=== PATIENT | female | born 1990 | race Caucasian/White ===

== ENCOUNTER 2017-05-01 16:34 | Emergency (ER) | payer MEDICAID, OTHER ==
[~2017-05-01] VITALS: Ht 167.6 cm; Wt 42.0 kg
[2017-05-01 16:48] VITALS: Ht 167.6 cm; Wt 42.0 kg
[2017-05-01] MEDS ORDERED: ONDANSETRON (ODT) 4 MG TAB ODT STA (17:06)
[2017-05-01] MEDS ORDERED: LIDOCAINE 1% (MDV) 20 ML INJ IM ONE (17:30)
[2017-05-01] MEDS ORDERED: AZITHROMYCIN 250 MG TAB PO ONE (17:30)
[2017-05-01] MEDS ORDERED: CEFTRIAXONE 250 MG INJ IM ONE (17:30)
[2017-05-01 17:51] LABS: ADD UMIC YES; UR ASCORBIC ACID NEGATIVE (NEGATIVE); UR BACTERIA FEW /HPF (NONE SEEN); UR BILIRUBIN (Dip) NEGATIVE (NEGATIVE); UR BLOOD (Dip) 1+ mg/dL (NEGATIVE); UR CLARITY SLIGHTLY CLOUDY (CLEAR); UR COLOR YELLOW (YELLOW); UR GLUCOSE (Dip) NEGATIVE (NEGATIVE); UR KETONES (Dip) NEGATIVE (NEGATIVE); UR LEUKOCYTE ESTERASE (Dip) 2+ Leu/ul (NEGATIVE); UR MUCUS MANY /HPF (NONE SEEN); UR NITRITE (Dip) NEGATIVE (NEGATIVE); UR RBC 2 /HPF (0-5); UR SPECIFIC GRAVITY (Dip) 1.027 (1.003-1.030); UR SQUAMOUS EPITHELIAL CELL FEW /HPF (FEW); UR TOTAL PROTEIN (Dip) 1+ mg/dl (NEGATIVE); UR UROBILINOGEN (Dip) NEGATIVE (NEGATIVE)
[2017-05-01] MEDS ORDERED: ONDA4TAB14 PO (17:59)
[2017-05-01] MEDS ORDERED: NITR-58 PO (17:59)
--- NOTE | 2017-05-01 18:05 | ERD ---
ER Documentation Chief Complaint Date/Time DATE: 05/01/17 TIME: 18:03 Chief Complaint Pt with AP and vomiting since yesterday. HPI Patient is a 26-year-old female who presents to the ED with generalized abdominal pain, suprapubic pain and STD check. She states that she is currently sexually active with one partner. She does have a history of chlamydia and would like to get treated and tested for STD. She complains of vaginal discharge that is great. Denies vaginal bleeding. States her last normal menstrual period was 04/27/17. Denies diarrhea or constipation. Had an episode of nonbloody nonbilious he has emesis yesterday with no vomiting today. Denies decrease in appetite. Denies headache or dizziness. No other complaints. ROS All systems reviewed and are negative except as per history of present illness. Medications Home Meds Active Scripts Ondansetron (Ondansetron Odt) 4 Mg Tab.rapdis, 4 MG PO Q6H Y for NAUSEA AND/OR VOMITING, #10 TAB Prov:LILIA JONES PA-C 05/01/17 Nitrofurantoin Monohyd Macrocr* (Macrobid*) 100 Mg Capsr, 100 MG PO BID for 7 Days, CAP Prov:LILIA JONES PA-C 05/01/17 Reported Medications [None] No Conflict Check 07/27/10 Allergies Allergies: Coded Allergies: No Known Allergies (Verified Allergy, Mild, 08/31/11) PMhx/Soc Medical and Surgical Hx: pt denies Medical Hx, pt denies Surgical Hx History of Surgery: No Anesthesia Reaction: No Hx Neurological Disorder: No Hx Respiratory Disorders: No Hx Cardiac Disorders: No Hx Psychiatric Problems: No Hx Miscellaneous Medical Probl: No Hx Alcohol Use: No Hx Substance Use: No Hx Tobacco Use: No Smoking Status: Never smoker FmHx Family History: No coronary disease, No diabetes, No other Physical Exam Vitals Vital Signs Date Time Temp Pulse Resp B/P Pulse Ox O2 Delivery O2 Flow Rate FiO2 05/01/17 16:48 98.9 95 18 122/59 100 Physical Exam GENERAL: Well-developed, well-nourished female. Appears in no acute distress. HEAD: Normocephalic, atraumatic. EYES: Pupils are equally reactive bilaterally. EOMs grossly intact. No conjunctival erythema. ENT: Moist mucous membranes. No uvula deviation. No kissing tonsils. No exudates. NECK: Supple. No lymphadenopathy or thyromegaly. No meningismus. negative kernig. negative brudinski. LUNG: Clear to auscultation bilaterally. No rhonchi, wheezing, rales or coarse breath sounds. HEART: Regular rate and rhythm. No murmurs, rubs or gallops. ABDOMEN: No scars, ecchymosis or rashes noted. Soft, nontender, and nondistended. Positive bowel sounds in all four quadrants. No rebound tenderness , no guarding. (-) McBurneys point tenderness. No CVA tenderness. BACK: No midline tenderness. Extremities: Equal pulses bilaterally. No peripheral clubbing, cyanosis or edema. No unilateral leg swelling. NEUROLOGIC: Alert and oriented. Moving all four extremities. 5/5 strength in all extremities. Normal speech. Steady gait. SKIN: Normal color. Warm and dry. No rashes or lesions. Capillary refill < 2 seconds Results 24 hrs Laboratory Tests Test 05/01/17 17:21 Urine Color YELLOW Urine Clarity SLIGHTLY CLOUDY Urine pH 5.0 Urine Specific [place] 1.027 Urine Ketones NEGATIVEmg/dL Urine Nitrite NEGATIVEmg/dL Urine Bilirubin NEGATIVEmg/dL Urine Urobilinogen NEGATIVEmg/dL Urine Leukocyte Esterase 2+Blu/ul Urine Microscopic RBC 2/HPF Urine Microscopic WBC 29/HPF Urine Squamous Epithelial Cells FEW/HPF Urine Calcium Oxalate Crystals FEW/HPF Urine Bacteria FEW/HPF Urine Mucus MANY/HPF Urine Hemoglobin 1+mg/dL Urine Glucose NEGATIVEmg/dL Urine Total Protein 1+mg/dl Current Medications Medications (Trade) Dose Ordered Sig/Xavier Route PRN Reason Start Time Stop Time Status Last Admin Dose Admin Azithromycin (Zithromax) 1,000 mg ONCE ONCE PO 05/01/17 17:30 05/01/17 17:31 DC 05/01/17 17:44 Ceftriaxone Sodium (Rocephin) 250 mg ONCE ONCE IM 05/01/17 17:30 05/01/17 17:31 DC 05/01/17 17:44 Lidocaine (Xylocaine 1% (Mdv) 20 ml) 20 ml ONCE ONCE IM 05/01/17 17:30 05/01/17 17:31 DC 05/01/17 17:45 Ondansetron HCl (Zofran Odt) 4 mg ONCE STAT ODT 05/01/17 17:06 05/01/17 17:08 DC 05/01/17 17:44 Procedures/MDM ER COURSE: I kept the patient and/or family informed of laboratory and diagnostic imaging results throughout the emergency room course. LABORATORY STUDIES Urinalysis shows 2+ leukocytes with no nitrites. Negative test. MEDICAL DECISION MAKING: This is a 26-year-old female who presents with generalized abdominal pain, suprapubic pain and STD check. Vital signs were reviewed. Patient is afebrile. Patient is not hypoxic. Patient is not toxic or ill-appearing. Patient's abdominal exam is within normal limits and unremarkable. Therefore no further blood work or ultrasound or imaging studies were necessary. Patient was given Zofran, azithromycin and Rocephin in the ED. Tolerated well with no adverse reaction. Patient has cystitis. Urine was sent for gonorrhea and chlamydia culture. Low suspicion for ovarian torsion, PID, tuboovarian abscess, ectopic , bowel obstruction, pyelonephritis, UTI, appendicitis, cervicitis, septic , septic or obstructive stone, sepsis DISCHARGE: At this time, patient is stable for discharge and outpatient management with no new complaints during the ER course. Patient was sent home with Macrobid and Zofran. Patient will be discharged home with instructions to recheck for new or worsening symptoms such as fever, nausea, weakness, LOC and to follow up with primary care in the next 1-2 days. Patient was advised to return to the ER for any new or worsening symptoms. Plan was discussed and patient and/or family understands and agrees. Home instructions were given. Departure Diagnosis: Primary Impression: Exposure to STD Additional Impression: Cystitis Condition: Stable Patient Instructions: Understanding STDs, Cystitis Additional Instructions: Call your primary care doctor TOMORROW for an appointment during the next 1-2 days.See the doctor sooner or return here if your condition worsens before your appointment time. LILIA JONES PA-C May 01, 2017 18:05
== END 2017-05-01 18:29 | disposition home or self-care (01) ==
LOC: FTE 16:34
DX: N30.90 Cystitis, unspecified without hematuria (principal); Z20.2 Contact with and (suspected) exposure to infections with a predominantly sexual mode of transmission
CPT/HCPCS: 81001; 87591; 96372; J0696; Z7502; Z7610

== ENCOUNTER 2018-08-27 19:51 | Emergency (ER) | END 2018-08-27 22:37 | disposition home or self-care (01) ==